=== PATIENT | male | born 1965 | race Caucasian/White ===

== ENCOUNTER 2017-11-21 18:03 | Emergency (ER) | payer MEDICAID ==
[~2017-11-21] VITALS: Ht 165.1 cm; Wt 82.7 kg
[2017-11-21] MEDS ORDERED: ketorolac trometh inj. 60 MG/2 ML VIAL IM ONE (19:35)
[2017-11-21] MEDS ORDERED: HYDROmorphone 2mg/ml vial IM ONE (19:35)
[2017-11-21] MEDS ORDERED: HYDROmorphone 1 mg/ml syringe IM ONE (19:35)
[2017-11-21] MEDS ORDERED: diazepam 5mg tablet PO ONE (19:35)
[2017-11-21] MEDS ORDERED: HYDR-565 PO (19:39)
[2017-11-21] MEDS ORDERED: CYCL-1 PO (19:39)
[2017-11-21] MEDS ORDERED: GABA300C PO (19:39)
[2017-11-21 20:18] VITALS: BP 150/91
== END 2017-11-21 20:22 | disposition home or self-care (01) ==
LOC: ER 18:05
DX: M54.12 Radiculopathy, cervical region (principal); I10 Essential (primary) hypertension; E11.9 Type 2 diabetes mellitus without complications; E78.00 Pure hypercholesterolemia, unspecified; F17.200 Nicotine dependence, unspecified, uncomplicated
CPT/HCPCS: 96372; 99284; A4565; J1170; J1885

== ENCOUNTER 2017-11-27 03:32 | Emergency (ER) | payer MEDICAID ==
[~2017-11-27] VITALS: Ht 165.1 cm; Wt 84.0 kg
[~2017-11-27 03:32] MED LIST: CYCL-1 PO; GABA300C PO; HYDR-565 PO
[2017-11-27 03:34] VITALS: BP 150/78
[2017-11-27] MEDS ORDERED: ketorolac trometh. 30mg/ml inj. IM ONE (03:55)
[2017-11-29] MEDS ORDERED: ONDA4TAB9 PO (18:27)
[2017-11-29] MEDS ORDERED: VAL5T PO (18:27)
[2017-11-29] MEDS ORDERED: GABA300C PO (18:27)
[2017-11-29] MEDS ORDERED: METH4TAB3 PO (18:27)
[2017-11-29] MEDS ORDERED: HYDR-565 PO (18:27)
[2017-11-29] MEDS ORDERED: METH500T PO (18:32)
== END 2017-11-27 04:28 | disposition home or self-care (01) ==
LOC: ER 03:33
DX: M54.12 Radiculopathy, cervical region (principal); E78.00 Pure hypercholesterolemia, unspecified; E11.9 Type 2 diabetes mellitus without complications; I10 Essential (primary) hypertension
CPT/HCPCS: 96372; 99283; J1885

== ENCOUNTER 2017-12-04 12:37 | Emergency (ER) | payer MEDICAID ==
[~2017-12-04] VITALS: Ht 165.1 cm; Wt 82.0 kg
[~2017-12-04 12:37] MED LIST changes: +METH4TAB3 PO; +METH500T PO; +ONDA4TAB9 PO; +VAL5T PO
[2017-12-04] MEDS ORDERED: CYCL-1 PO (13:05)
[2017-12-04] MEDS ORDERED: HYDR-565 PO (13:05)
[2017-12-04] MEDS: HYDROcodone/acetaminophen 5mg/325mg tablet PO ONE (13:17)
[2017-12-04] MEDS: ketorolac trometh inj. 60 MG/2 ML VIAL IM ONE (13:18)
[2017-12-04] MEDS: dexamethasone sod phosphate 10mg/ml inj IM STA (13:18)
[2017-12-04] MEDS: orphenadrine citrate 60mg/2ml inj. IM ONE (13:18)
[2017-12-04 13:26] VITALS: BP 165/113
== END 2017-12-04 13:28 | disposition home or self-care (01) ==
LOC: ER 12:37
DX: M54.12 Radiculopathy, cervical region (principal); G89.29 Other chronic pain; M54.2 Cervicalgia; E78.00 Pure hypercholesterolemia, unspecified; I10 Essential (primary) hypertension; E11.9 Type 2 diabetes mellitus without complications; Z79.899 Other long term (current) drug therapy
CPT/HCPCS: 96372; 99284; J1100; J1885; J2360

== ENCOUNTER 2017-12-06 18:03 | Emergency (ER) | payer MEDICAID ==
[~2017-12-06] VITALS: Ht 165.1 cm; Wt 82.3 kg
[2017-12-06] MEDS ORDERED: CYCL-1 PO (20:44)
[2017-12-06] MEDS ORDERED: NAPR-56 PO (20:44)
[2017-12-06] MEDS ORDERED: HYDR-565 PO (20:44)
[2017-12-06] MEDS ORDERED: triamcinolone acetonide 40mg/ml inj IM ONE (20:45)
[2017-12-06] MEDS ORDERED: ketorolac trometh inj. 60 MG/2 ML VIAL IM ONE (20:45)
[2017-12-06] MEDS ORDERED: HYDROmorphone 2mg tablet PO ONE (20:45)
[2017-12-06 21:18] VITALS: BP 134/75
== END 2017-12-06 21:25 | disposition home or self-care (01) ==
LOC: ER 18:04
DX: M50.00 Cervical disc disorder with myelopathy, unspecified cervical region (principal); E11.9 Type 2 diabetes mellitus without complications; E78.00 Pure hypercholesterolemia, unspecified; I10 Essential (primary) hypertension; Z79.899 Other long term (current) drug therapy
CPT/HCPCS: 96372; 99284; J1885; J3301

== ENCOUNTER 2018-10-12 19:23 | Emergency (ER) | payer MEDICAID ==
[~2018-10-12] VITALS: Ht 165.1 cm; Wt 82.0 kg
[~2018-10-12 19:23] MED LIST changes: -HYDR-565 PO; -ONDA4TAB9 PO; -VAL5T PO
[2018-10-12 19:30] VITALS: BP 120/60
[2018-10-12] MEDS ORDERED: BENZ-16 PO (22:09)
[2018-10-12] MEDS ORDERED: GUAI200T5 PO (22:09)
[2018-10-12] MEDS ORDERED: guaiFENesin/codeine phos 10ml UD oral syrup PO ONE (22:10)
== END 2018-10-12 22:26 | disposition home or self-care (01) ==
LOC: ER 19:23
DX: R05 Cough (principal); R07.9 Chest pain, unspecified; J02.9 Acute pharyngitis, unspecified; I10 Essential (primary) hypertension; E78.00 Pure hypercholesterolemia, unspecified; E11.9 Type 2 diabetes mellitus without complications; Z79.899 Other long term (current) drug therapy
CPT/HCPCS: 71046; 87502; 87503; 99284